=== PATIENT | female | born 1950 | race Caucasian/White ===

== ENCOUNTER 2018-03-04 08:07 | Outpatient (CLI) | payer OTHER ==
[~2018-03-04 08:07] MED LIST: ENALAPRIL MALEA10 MG; FERROUS SULFAT325 MG; FOLIC ACID1 MG; FORTAMET1000 MG; GABAPENTIN100 MG; GLUCOTROL10 MG; HUMULIN 70100 UNIT/2; HYDROCHLOROTH12.5 M1; KETO10TA2 PO; NABUMETONE500 MG PO; NORFLEX100MG PO; PERCOCET 5/3251 TAB PO; SIMVASTATIN40 MG
== END 2018-03-04 15:22 | disposition home or self-care (01) ==
LOC: MAMO-SONO 08:07
DX: Z12.31 Encounter for screening mammogram for malignant neoplasm of breast (principal); Z87.898 Personal history of other specified conditions

== ENCOUNTER 2018-03-13 13:37 | Outpatient (CLI) | payer OTHER | END 2018-03-13 13:43 | disposition home or self-care (01) | LOC: NUCLEAR 13:37 | DX: M81.0 Age-related osteoporosis without current pathological fracture (principal) ==

== ENCOUNTER → 2018-03-27 | Emergency (ER) | payer OTHER ==
[~2018-03-27] VITALS: Ht 152.4 cm; Wt 95.3 kg
[~2018-03-27] MED LIST changes: +POTASSIUM GLU2.5 ME1 PO
== END | disposition home or self-care (01) ==
LOC: ER 12:47
DX: E11.649 Type 2 diabetes mellitus with hypoglycemia without coma (principal); E87.6 Hypokalemia